=== PATIENT | female | born 2000 | race Caucasian/White ===

== ENCOUNTER 2019-08-20 21:39 | Outpatient (CLI) | payer OTHER ==
[2019-08-20 22:26] LABS: APPEARANCE,URINE SLIGHTLY-CLOUDY; BILIRUBIN,URINE NEGATIVE (NEGATIVE); COLOR,URINE YELLOW; GLUCOSE, URINE NEGATIVE (NEGATIVE); KETONES,URINE NEGATIVE (NEGATIVE); LEUKOCYTE ESTERASE,URINE LARGE (NEGATIVE); NITRITE,URINE NEGATIVE (NEGATIVE); PROTEIN,URINE NEGATIVE (NEGATIVE); UROBILINOGEN,URINE NEGATIVE mg/dL (<2.0)
[2019-08-20 22:43] LABS: URINE AMPHETAMINES SCREEN NEGATIVE; URINE BARBITURATES SCREEN NEGATIVE; URINE BENZODIAZEPINES SCREEN NEGATIVE; URINE COCAINE SCREEN NEGATIVE; URINE MARIJUANA (THC) SCREEN NEGATIVE; URINE METHADONE SCREEN NEGATIVE; URINE PHENCYCLIDINE SCREEN NEGATIVE
[2019-08-21] MEDS ORDERED: HYDROXYZINE PAMOATE 50 MG CAPSULE ONE (00:03)
--- NOTE | 2019-08-21 00:25 | Non Stress Test Report ---
Non Stress Test Datetime Report Generated by CPN: 08/21/2019 00:24 DEMOGRAPHIC EGA NST: 37.5 INDICATION Indication for Study (NST) Other: labor check Indication for Study (NST) Other: Gestational age greater than 32 weeks VITAL SIGNS Temperature - NST: 98.8 Pulse - NST: 85 RESP - NST: 17 NBPSYS NST: 113 NBPDIA NST: 71 MONITORING Monitor Explained: Monitor Explained; Test Explained; Patient Verbalized Understanding Time on Monitor: 08/20/2019 21:55 Time on Monitor: 08/21/2019 22:00 Time off Monitor: 08/20/2019 22:55 NST Duration: 60 NST INTERVENTIONS NST Interventions: PO Hydration; Reposition Patient Physician Notified NST: Dr. Infante BABY A: [id number] BABY A Movement : Present Contraction Frequency : 2-5 FHR Baseline : 125 Accelerations : 15X15 Decelerations : None Variability : Moderate 6-25bpm NST Review: Meets Criteria for Reactive NST NST Review and Verified By : ROS SteinT Results: Reactive NST REPORT Report Trigger: Send Report (Annotations: Data stored by Christie on behalf of user) Report Trigger: Send Report
[2019-08-21] MEDS ORDERED: HYDROXYZINE PAMOATE 50 MG CAPSULE PO ONE (01:00)
== END 2019-08-21 00:16 | disposition home or self-care (01) ==
LOC: LC 21:39
PROVIDERS: ATTEND Obstetrics & Gynecology
PROC: 4A1HXCZ Monitoring of Products of Conception, Cardiac Rate, External Approach (ICD-10-PCS; principal; 2019-08-20)
DX: O47.1 False labor at or after 37 completed weeks of gestation (principal); Z3A.37 37 weeks gestation of pregnancy
CPT/HCPCS: 80307; 81005

== ENCOUNTER 2019-08-21 06:30 | Inpatient (IN) | payer OTHER ==
[2019-08-21] MEDS ORDERED: OXYTOCIN 10 UNIT/ML VIAL ONE (06:50)
[2019-08-21] MEDS ORDERED: LIDOCAINE 1% INJ-PF (10 MG/ML) 30 ML SDV ONE (06:50)
[2019-08-21] MEDS ORDERED: MISOPROSTOL 0.2 MG TABLET ONE (06:50)
[2019-08-21] MEDS ORDERED: PROMETHAZINE HCL 25 MG TABLET PO PRN (07:59)
[2019-08-21] MEDS ORDERED: PSEUDOEPHEDRINE HCL 30 MG TABLET PO PRN (07:59)
[2019-08-21] MEDS ORDERED: MAGNESIUM HYDROXIDE SUSP 30 ML UDCUP PO PRN (07:59)
[2019-08-21] MEDS ORDERED: OXYTOCIN/NORMAL SALINE 20 UNIT/1,000 ML RTUINJ IV PRN (07:59)
[2019-08-21] MEDS ORDERED: PROMETHAZINE HCL 25 MG SUPP.RECT PR PRN (07:59)
[2019-08-21] MEDS ORDERED: BENZOCAINE/MENTHOL AEROSOL SPRAY 56 ML TOP PRN (07:59)
[2019-08-21] MEDS ORDERED: DIPHENHYDRAMINE HCL 25 MG CAPSULE PO PRN (07:59)
[2019-08-21] MEDS ORDERED: NA PHOS,M-B/NA PHOS,DI-BA (ADULT) 133 ML ENEMA PR PRN (07:59)
[2019-08-21] MEDS ORDERED: DIBUCAINE 1% OINTMENT 28 GM TP PRN (07:59)
[2019-08-21] MEDS ORDERED: ACETAMINOPHEN 650 MG SUPP.RECT PR PRN (07:59)
[2019-08-21] MEDS ORDERED: MEASLES,MUMPS&RUBELLA VACC/PF 0.5 ML VIAL SUBCUT PRN (07:59)
[2019-08-21] MEDS ORDERED: PROMETHAZINE HCL INJ 25 MG/1 ML VIAL IV PRN (07:59)
[2019-08-21] MEDS ORDERED: DIPH/PERTUSS(ACELL)/TETANUS VAC/PF 0.5 ML SYR (>=10YO) IM PRN (07:59)
[2019-08-21] MEDS ORDERED: GLYCERIN/WITCH HAZEL LEAF 1 EACH MED..WIPE TP PRN (07:59)
[2019-08-21] MEDS ORDERED: ACETAMINOPHEN WITH CODEINE #3 TABLET PO PRN (07:59)
[2019-08-21] MEDS ORDERED: IBUPROFEN 800 MG TABLET ONE (08:42)
[2019-08-21] MEDS ORDERED: BENZOCAINE/MENTHOL AEROSOL SPRAY 56 ML ONE (08:43)
--- NOTE | 2019-08-21 09:40 | Warning Signs in Babies ---
VOD Warning Signs Datetime Report Generated by [facility]: 08/21/2019 09:40 VOD#608 -Warning Signs in Babies: Viewed with Parent(s)/Family (08/21/2019 09:40:Jose Jolley RN)
[2019-08-21 09:58] LABS: HEMATOCRIT 36.6 % (36.0-47.0); HEMOGLOBIN 12.3 g/dL (12.0-15.5); MEAN CORPUSCULAR HEMOGLOBIN 27.2 pg (27.0-33.4); MEAN CORPUSCULAR HGB CONC 33.5 g/dL (32.0-36.0); MEAN CORPUSCULAR VOLUME 81 fl (80-97); PLATELET COUNT 269 10^3/uL (150-450); RED CELL DISTRIBUTION WIDTH 14.6 % (11.5-14.0)
[2019-08-21 10:29] LABS: ABSOLUTE LYMPHOCYTES# (MANUAL) 0.8 10^3/uL (0.5-4.7); ABSOLUTE MONOCYTES # (MANUAL) 0.8 10^3/uL (0.1-1.4); BAND NEUTROPHILS % (MANUAL) 3 % (3-5); BASOPHILS % (MANUAL) 0 % (0-2); EOSINOPHILS % (MANUAL) 0 % (0-6); LYMPHOCYTES % (MANUAL) 3 % (13-45); MONOCYTES % (MANUAL) 3 % (3-13); SEGMENTED NEUTROPHILS % (MAN) 91 % (42-78); TOTAL CELLS COUNTED 100
[2019-08-21 10:30] LABS: ANISOCYTOSIS SLIGHT; PLATELET COMMENT ADEQUATE
[2019-08-21] MEDS: PRENATAL VITAMIN W DHA CAPSULE PO SCH (10:53)
[2019-08-21] MEDS: FERROUS SULFATE 325 MG TABLET PO SCH ×2 (10:53→17:41)
[2019-08-21] MEDS: IBUPROFEN 800 MG TABLET PO SCH ×2 (10:53→17:41)
[2019-08-21] MEDS: FAMOTIDINE 20 MG TABLET PO SCH ×2 (10:53→22:39)
[2019-08-21] MEDS: DOCUSATE SODIUM 100 MG CAPSULE PO SCH ×2 (10:54→17:41)
[2019-08-21] MEDS: SENNOSIDES/DOCUSATE 8.6-50 MG 1 EACH TABLET PO SCH (10:54)
[2019-08-21] MEDS: ACETAMINOPHEN WITH CODEINE #3 TABLET PO PRN (12:53)
--- NOTE | 2019-08-21 17:21 | Delivery Summary ---
Del Sum A-C Datetime Report Generated by CPN: 08/21/2019 17:21 DELIVERY PERSONNEL DELIVERY PERSONNEL: [id number] Delivery Doctor:: Heather Infante MD Labor and Delivery Nurse:: Subha Fitch, dental hygienist Nurse:: Zhanna Skaggs, RNC Nursery Nurse:: Danielle Linares RN Hydramatic Specialist/BELLHOP SERVICE CAPTAIN: Mare Duran CST Hydramatic Specialist/BELLHOP SERVICE CAPTAIN: Lisa Leach, Additional Personnel: : Christine Hart, RNC MATERNAL INFORMATION Delivery Anesthesia: Local Medications After Delivery: Pitocin 10 Units IM Meds After Delivery Comment: Pitocin 10 units IM in Delivery QBL: 199 Maternal Complications: None Provider Comments: After delivery of the head, a nuchal x2 noted and reduced easily. THe shoulders and rest of the body delivered easily. Cord clamped doubly, then cut. to maternal chest. Nasal annd oral suctioned. Nursery staff in attendance to help with baby LABOR SUMMARY EDC: 09/05/2019 00:00 No. Babies in Womb: 1 Attempted: No Labor Anesthesia: None LABOR INFORMATION Reason for Induction: Not Applicable Onset of Labor: 08/21/2019 06:00 Complete Dilatation: 08/21/2019 06:59 Oxytocin: N/A Group B Beta Strep: negative Antibiotics # of Doses: 0 Antibiotics Time of Last Dose: 0 Name of Antibiotic Given: 0 Steroids Given: None Reason Steroids Not Administered: Not Applicable MEMBRANES Membranes Rupture Method: Spontaneous Rupture of Membranes: 08/21/2019 06:30 Length of Rupture (hr): 0.78 Amniotic Fluid Color: Clear Amniotic Fluid Amount: Scant Amniotic Fluid Odor: Normal STAGES OF LABOR Stage 1 hr: 0 Stage 1 min: 59 Stage 2 hr: 0 Stage 2 min: 18 Stage 3 hr: 0 Stage 3 min: 6 Total Time in Labor hr: 1 Total Time in Labor min: 23 VAGINAL DELIVERY Episiotomy: None Laceration #1: Perineal Laceration Extension #1: Second Degree Other Laceration: 2.0 Chromic 801 x2 for repair Laceration Repair: Yes Laceration Repair Note: Layered closure Sponge Count Correct: N/A; Yes Sharps Count Correct: Yes CSECTION DELIVERY Primary Indication: N/A Secondary Indication: N/A CSection Incidence: N/A Labor: N/A Elective: N/A CSection Incision: N/A BABY A INFORMATION Delivery Date/Time: 08/21/2019 07:17 Method of Delivery: Vaginal Born in Route : No : N/A Forceps: N/A Vacuum Extraction: N/A Shoulder Dystocia : No PRESENTATION/POSITION BABY A Presentation: Cephalic Cephalic Presentation: Vertex Vertex Position: Right Occipital Anterior Breech Presentation: N/A PLACENTA INFORMATION BABY A Placenta Delivery Time : 08/21/2019 07:23 Placenta Method of Delivery: Spontaneous Placenta Status: Delivered SCORES BABY A Heart Rate 1 min: >100 bpm Resp Effort 1 min: Slow, Irregular Reflex Irritability 1 min: Grimace Muscle Tone 1 min: Flaccid Color 1 min: Blue/Pale Resuscitation Effort 1 min: Tactile Stimulation SCORE 1 MIN: 4 Heart Rate 5 min: >100 bpm Resp Effort 5 min: Slow, Irregular Reflex Irritability 5 min: Grimace Muscle Tone 5 min: Flaccid Color 5 min: Blue/Pale Resuscitation Effort 5 min: Tactile Stimulation; Oxygen SCORE 5 MIN: 4 Heart Rate 10 min: >100 bpm Resp Effort 10 min: Slow, Irregular Reflex Irritability 10 min: Cough or Sneeze or Pulls Away Muscle Tone 10 min: Some Flexion of Extremities Color 10 min: Body [place], Extremities Blue Resuscitation Effort 10 min: PPV/NCPAP SCORE 10 MIN: 7 Heart Rate 15 min: >100 bpm Resp Effort 15 min: Good [place] Reflex Irritability 15 min: Cough or Sneeze or Pulls Away Muscle Tone 15 min: Some Flexion of Extremities Color 15 min: Body [place], Extremities Blue Resuscitation Effort 15 min: Tactile Stimulation; PPV/NCPAP SCORE 15 MIN: 8 INFORMATION BABY A Gestational Age at Delivery: 37.6 Gestational Status: Early Term- 37- 38.6 Weeks Infant Outcome : Liveborn Infant Condition : Stable Sex: Female IDENTIFICATION BABY A Verification Date/Time: 08/21/2019 07:34 ID Band Number: [id number] Mother's Name Verified: Yes Infant RN Verifying : Zhanna Camp RNC Additional Verifying Personnel: Lisa Leach [employer]ITIVE [employer] WEIGHT/LENGTH BABY A Birthweight (gm): 3527 Infant Weight (lb): 7 Weight (oz): 12 CORD INFORMATION BABY A No. Cord Vessels: 3 Nuchal Cord : Around Neck x2, Loose Cord Blood Taken: Yes-For Storage (Mom's Blood type +) Infant Suction: Mouth ASSESSMENT BABY A Respirations: Intercostal Retractions Skin to Skin: No [employer] Producer/ALS Called : No Transferred To: [facility] BABY B INFORMATION : N/A SIGNATURES Signature: with User ID: [email or web address] : with User ID: [email or web address]
[2019-08-22] MEDS: IBUPROFEN 800 MG TABLET PO SCH ×3 (01:08→18:35)
[2019-08-22 06:33] LABS: HEMATOCRIT 32.4 % (36.0-47.0); HEMOGLOBIN 10.8 g/dL (12.0-15.5); MEAN CORPUSCULAR HEMOGLOBIN 27.3 pg (27.0-33.4); MEAN CORPUSCULAR HGB CONC 33.2 g/dL (32.0-36.0); MEAN CORPUSCULAR VOLUME 82 fl (80-97); PLATELET COUNT 224 10^3/uL (150-450); RED BLOOD COUNT 3.94 10^6/uL (3.72-5.28); RED CELL DISTRIBUTION WIDTH 14.7 % (11.5-14.0); WHITE BLOOD COUNT 18.7 10^3/uL (4.0-10.5)
[2019-08-22] MEDS: SENNOSIDES/DOCUSATE 8.6-50 MG 1 EACH TABLET PO SCH (09:21)
[2019-08-22] MEDS: FAMOTIDINE 20 MG TABLET PO SCH ×2 (09:21→22:17)
[2019-08-22] MEDS: FERROUS SULFATE 325 MG TABLET PO SCH ×2 (09:21→18:35)
[2019-08-22] MEDS: PRENATAL VITAMIN W DHA CAPSULE PO SCH (09:21)
[2019-08-22] MEDS: DOCUSATE SODIUM 100 MG CAPSULE PO SCH ×2 (09:21→18:35)
--- NOTE | 2019-08-22 16:06 | PDOC PROGRESS REPORT ---
Subjective-OB Progress Note for:: 08/22/19 - PP Day #1, pt has been out of bed, ambulated to NICU to see her baby. She is currently pumping. A+ Physical Exam (OB) Vital Signs: Temp Pulse Resp BP Pulse Ox 97.5 F 88 14 113/74 98 08/22/19 07:48 08/22/19 07:48 08/22/19 07:48 08/22/19 07:48 08/22/19 07:48 Intake & Output 08/21/19 08/22/19 08/23/19 06:59 06:59 06:59 Intake Total 600 Balance 600 Weight 91.36 kg - General General Appearance: Appears well, Alert - PIH/Pre-Eclampsia DTR's: 1 + Clonus: Negative Headache: Absent Epigastric Pain: No Visual Changes: No - Lochia Lochia Amount: Scant < 10 ml Lochia Color: Rubra/Red - Abdomen Description: Soft Hernia Present: No Fundal Description: Firm, Midline Fundal Height: u/u - u/2 - Respiratory Respiratory Status: No respiratory distress - Abdominal Distension: No distension Tenderness: Nontender - Genitourinary Genitourinary Note: voiding - Extremities Upper extremity: Normal inspection Lower extremities: Normal inspection - Neurological Cognition: Normal Orientation: AAOx4 - Psychological Associated symptoms: Normal affect, Normal mood - Skin Skin Temperature: Warm Skin Moisture: Dry Objective-Diagnostic Laboratory: 08/22/19 06:03 08/22/19 06:03 WBC 18.7 H RBC 3.94 Hgb 10.8 L Hct 32.4 L MCV 82 MCH 27.3 MCHC 33.2 RDW 14.7 H Plt Count 224
[2019-08-22] MEDS: ESCITALOPRAM OXALATE 10 MG TABLET PO SCH (16:31)
[2019-08-22] MEDS: ACETAMINOPHEN WITH CODEINE #3 TABLET PO PRN ×2 (16:31→23:07)
[2019-08-23] MEDS: IBUPROFEN 800 MG TABLET PO SCH ×2 (03:09→11:01)
[2019-08-23 08:43] VITALS: BP 103/62
[2019-08-23] MEDS ORDERED: PRENATAL VIT CALC76 PO SCH (10:00)
[2019-08-23] MEDS ORDERED: FOLIC PO SCH (10:00)
[2019-08-23] MEDS ORDERED: IRON PO SCH (10:00)
[2019-08-23] MEDS: ESCITALOPRAM OXALATE 10 MG TABLET PO SCH (10:59)
[2019-08-23] MEDS: FAMOTIDINE 20 MG TABLET PO SCH (11:00)
[2019-08-23] MEDS: PRENATAL VITAMIN W DHA CAPSULE PO SCH (11:00)
--- NOTE | 2019-08-23 11:01 | PDOC DISCHARGE SUMMARY ---
Impression - Admit/DC Date/PCP Admission Date/Primary Care Provider: 08/21/19 06:52 Discharge Date: 08/23/19 - PP day #2, doing well, baby still in NICU, pt desires to nest over night if possible, A+, Rubella Immune, pumping breast milk - Discharge Diagnosis (1) (normal spontaneous vaginal delivery) Is this a current diagnosis for this admission?: Yes (2) Normal course Is this a current diagnosis for this admission?: Yes (3) 37 weeks gestation of Is this a current diagnosis for this admission?: Yes - Additional Information Resuscitation Status: Full Code Discharge Diet: As Tolerated, Regular Discharge Activity: Activity As Tolerated, No Lifting Over 10 Pounds, Pelvic Rest Referrals: [facility] [Provider Group] Prescriptions: Ibuprofen [Motrin 800 mg Tablet] 800 mg PO Q8A #60 tablet Home Medications: Escitalopram Oxalate [Lexapro 10 mg Tablet] 10 mg PO DAILY 08/20/19 Vit,Calc76/Iron/Folic [Prenatabs Rx Tablet] 76 mg PO DAILY 08/20/19 Ibuprofen [Motrin 800 mg Tablet] 800 mg PO Q8A #60 tablet 08/23/19 HPI Reason(s) for Admission: Onset of Labor Procedures: NST, Ultrasound Intrapartum Procedure(s): Spontaneous Vaginal Delivery Complication(s): Laceration-Perineal Laceration-Degree: 2nd Hospital Course Hospital Course: routine PP course, baby in NICU Results Laboratory Results: WBC 18.7 10^3/uL (4.0-10.5) H 08/22/19 06:03 RBC 3.94 10^6/uL (3.72-5.28) 08/22/19 06:03 Hgb 10.8 g/dL (12.0-15.5) L 08/22/19 06:03 Hct 32.4 % (36.0-47.0) L 08/22/19 06:03 MCV 82 fl (80-97) 08/22/19 06:03 MCH 27.3 pg (27.0-33.4) 08/22/19 06:03 MCHC 33.2 g/dL (32.0-36.0) 08/22/19 06:03 RDW 14.7 % (11.5-14.0) H 08/22/19 06:03 Plt Count 224 10^3/uL (150-450) 08/22/19 06:03 Lymph % (Auto) Not Reportable 08/21/19 09:08 Clark % (Auto) Not Reportable 08/21/19 09:08 Eos % (Auto) Not Reportable 08/21/19 09:08 Baso % (Auto) Not Reportable 08/21/19 09:08 Absolute Neuts (auto) Not Reportable 08/21/19 09:08 Absolute Lymphs (auto) Not Reportable 08/21/19 09:08 Absolute Monos (auto) Not Reportable 08/21/19 09:08 Absolute Eos (auto) Not Reportable 08/21/19 09:08 Absolute Basos (auto) Not Reportable 08/21/19 09:08 Total Counted 100 08/21/19 09:08 Seg Neutrophils % Not Reportable 08/21/19 09:08 Seg Neuts % (Manual) 91 % (42-78) H 08/21/19 09:08 Band Neutrophils % 3 % (3-5) 08/21/19 09:08 Lymphocytes % (Manual) 3 % (13-45) L 08/21/19 09:08 Monocytes % (Manual) 3 % (3-13) 08/21/19 09:08 Eosinophils % (Manual) 0 % (0-6) 08/21/19 09:08 Basophils % (Manual) 0 % (0-2) 08/21/19 09:08 Abs Neuts (Manual) 26.3 10^3/uL (1.7-8.2) H 08/21/19 09:08 Abs Lymphs (Manual) 0.8 10^3/uL (0.5-4.7) 08/21/19 09:08 Abs Monocytes (Manual) 0.8 10^3/uL (0.1-1.4) 08/21/19 09:08 Absolute Eos (Manual) 0.0 10^3/uL (0.0-0.6) 08/21/19 09:08 Abs Basophils (Manual) 0.0 10^3/uL (0.0-0.2) 08/21/19 09:08 Platelet Comment ADEQUATE 08/21/19 09:08 Anisocytosis SLIGHT 08/21/19 09:08 RPR NONREACTIVE (NONREACTIVE) 08/21/19 09:08 Blood Type A POSITIVE 08/21/19 09:08 Antibody Screen NEGATIVE 08/21/19 09:08 Plan Plan of Treatment: d/c to home. f/u with [facility] in 4 wks for PP check
[2019-08-23] MEDS: FERROUS SULFATE 325 MG TABLET PO SCH (11:02)
[2019-08-23] MEDS: DOCUSATE SODIUM 100 MG CAPSULE PO SCH (11:02)
[2019-08-23] MEDS: SENNOSIDES/DOCUSATE 8.6-50 MG 1 EACH TABLET PO SCH (11:02)
== END 2019-08-23 15:05 | disposition home or self-care (01) | DRG 807 ==
LOC: LC 06:30 → LR 06:52 → 2S 10:25
PROVIDERS: ADMIT Obstetrics & Gynecology; ATTEND Obstetrics & Gynecology
PROC: 10E0XZZ Delivery of Products of Conception, External Approach (ICD-10-PCS; principal; 2019-08-21)
PROC: 0KQM0ZZ Repair Perineum Muscle, Open Approach (ICD-10-PCS; 2019-08-21)
DX: O69.81X0 Labor and delivery complicated by cord around neck, without compression, not applicable or unspecified (principal); Z37.0 Single live birth; O70.1 Second degree perineal laceration during delivery; Z3A.37 37 weeks gestation of pregnancy; Z88.3 Allergy status to other anti-infective agents; Z88.0 Allergy status to penicillin; Z88.2 Allergy status to sulfonamides; Z88.8 Allergy status to other drugs, medicaments and biological substances
CPT/HCPCS: 36415; 85025; 86592; 86850; 86900; 86901; 94760; J2590; J3490